=== PATIENT | male | born 1985 | race Caucasian/White ===

== ENCOUNTER 2016-09-10 17:18 | Emergency (ER) | payer OTHER ==
[2016-09-10 17:30] VITALS: PULSE 73; TEMP 98.2; BMI 25.8
--- NOTE | 2016-09-10 17:30 | PDOC ---
Rapid Medical Evaluation Time Seen by Provider: 09/10/16 17:25 Medical Evaluation: Allergies Allergy/AdvReac Type Severity Reaction Status Date / Time No Known Allergies Allergy Verified 09/22/15 14:16 09/10/16 17:26 RME Note: I have performed a brief, in-person evaluation of this patient . This patient presents with CC: Woke up with HANNA x this am; no fever, no NV; no HTN hx; Slight better post Excederin; no trauma Pertinent PE findings are: 148/ 102; no fever I have ordered: nothing The patient will proceed to ED for further evaluation. JR
[2016-09-10] MEDS ORDERED: IBUPROFEN 400 MG TABLET (FP) PO ONE ×2 (18:17→18:20)
--- NOTE | 2016-09-10 18:23 | PDOC ---
History of Present Illness - General Chief Complaint: Headache Stated Complaint: HEADACHE Time Seen by Provider: 09/10/16 17:25 Past History - Past Medical History Allergies/Adverse Reactions: Allergies Allergy/AdvReac Type Severity Reaction Status Date / Time No Known Allergies Allergy Verified 09/10/16 17:30 Home Medications: Ambulatory Orders NK [No Known Home Medication] 09/10/16 Other medical history: denies - Psycho/Social/Smoking Cessation Hx Suicidal Ideation: No Smoking History: Current every day smoker Number of Cigarettes Smoked Daily: 3 Information on smoking cessation initiated: Yes 'Breaking Loose' booklet given: 09/10/16 Hx Alcohol Use: No Drug/Substance Use Hx: No Substance Use Type: None *Physical Exam - Vital Signs Last Vital Signs Temp Pulse Resp BP Pulse Ox 98.2 F 73 17 145/103 99 09/10/16 17:27 09/10/16 17:27 09/10/16 17:27 09/10/16 17:27 09/10/16 17:27 Medical Decision Making - Medical Decision Making 09/10/16 18:17 31-year-old male, no significant history, woke up this morning with headache. Pain located to bilateral episcopalian area, throbbing in nature with a 7 out of 10 in intensity. Took Excedrin with significant improvement and now reports that pain is a 3 out of a 10. Denies dizziness, nausea, vomiting or visual changes. Has had headaches in the past but states pain today lasted longer than usual. No URI symptoms, fever, chills or neck stiffness. Pt admits he came in at urging of mother. Pt well enedelia and in NAD w/ BP of 148/103 at triage, exam otherwise unremarkable. Doubt serious etiology given patient's appearance and no focal neurological deficit. Possibly migrainous versus tension versus other nonemergent headache. Will control pain and repeat vitals. 09/10/16 19:26 BP continues to be elevated, currently 150s over 100. Patient remains well- appearing with no neurological deficit. Case discussed with Dr. Abrams, who recommends head CT at this time 09/10/16 19:30 09/10/16 19:31 09/10/16 19:52 CT head read as negative. Pt stable for discharge to f/u with PMD for evaluation of elevated BP and headaches *DC/Admit/Observation/Transfer Diagnosis at time of Disposition: Headache Qualifiers: Headache type: unspecified Headache chronicity pattern: acute headache Intractability: not intractable Qualified Code(s): R51 - Headache - Discharge Dispostion Disposition: HOME Condition at time of disposition: Improved - Patient Instructions Printed Discharge Instructions: DI for Headache Additional Instructions: Take motrin for pain as needed Please follow-up at [facility] at [phone]
[2016-09-10 19:22] VITALS: BP 150/100
== END 2016-09-10 20:01 | disposition home or self-care (01) ==
LOC: JERFT 17:18
DX: R51 Headache (principal); I10 Essential (primary) hypertension; F17.210 Nicotine dependence, cigarettes, uncomplicated
CPT/HCPCS: 70450-TC; 99281-25